=== PATIENT | female | born 1955 | race Caucasian/White ===

== ENCOUNTER 2020-01-31 10:15 | Observation (INO) | payer OTHER ==
[~2020-01-31] VITALS: Ht 162.6 cm; Wt 88.1 kg
[~2020-01-31 10:15] MED LIST: ALLEGRA 180MG180 MG PO; ASPIRIN E.C. 8181 MG PO; BRINTELLIX5 PO; CEPHALEXIN500 M1 PO; DOXYCYCLINE 10100 MG PO; EFFEXOR-XR150 MG PO; FLONASE NASAL S16 GM NS; HORIZANT600 MG PO; LEVOXYL0.137 MG PO; LEVOXYL0.15 MG PO; LIDODERM PATCH TP; LIPITOR 40MG TA40 MG PO; MAXALT5 MG PO; NEURONTIN600 MG/TAB PO; NEXIUM 40MG40 MG PO; NORCO 325 MG-7.1 TAB PO; NORVASC 10MG10 MG PO; OMEGA-3 FISH1000 MG PO; PIROXICAM20 MG PO; PLAVIX 75MG TAB75 MG PO; PLETAL 100MG T100 MG PO; PRINIVIL5 MG PO; PRINZIDE 12.5 M1 TA1 PO; SANCTURA20 MG PO; SEROQUEL XR400 M1 PO; SEROQUEL XR50 MG PO; SOMA 350MG350 MG/TAB PO; TENORMIN100 MG PO; ULTRAM 50MG TAB50 MG PO; UROCIT-K 1010 MEQ PO; VITAMIN D 1001000 IU PO; XOPENEX HF0.045 MG/A IH; ZOFRAN ODT8 MG PO
[2020-01-31] MEDS ORDERED: FLONASEALLERGY NS (16:12)
[2020-01-31] MEDS ORDERED: TIAZAC120 MG PO (16:13)
[2020-01-31] MEDS ORDERED: MAG-OX 400400 MG/TAB PO (16:14)
[2020-01-31] MEDS ORDERED: LEVOXYL0.15 MG PO (16:27)
[2020-01-31] MEDS ORDERED: SEROQUEL XR200 MG PO (16:35)
[2020-01-31] MEDS ORDERED: MIRALAX PA17 GM/Dose PO (16:36)
[2020-01-31] MEDS ORDERED: BRINTELLIX20 (16:37)
[2020-01-31] MEDS ORDERED: COLACE 100100 MG/CAP PO ×2 (16:39→16:40)
[2020-01-31] MEDS ORDERED: ABILIFY 10MG TA10 MG PO (16:39)
[2020-01-31] MEDS ORDERED: MYRBETR50MG PO (16:40)
[2020-01-31] MEDS ORDERED: LAMICTAL150 MG PO (16:40)
[2020-01-31] MEDS ORDERED: PROTONIX 40MG T40 MG PO (16:41)
[2020-01-31 17:27] VITALS: BP 125/47; PULSE 74; TEMP 97.4
[2020-01-31 17:27] LABS: HEMATOCRIT 27.5 % (37.0-47.0); HEMOGLOBIN 8.9 g/dl (12.5-16.0)
[2020-01-31 17:30] VITALS: BP 125/47; PULSE 74; TEMP 97.4
[2020-01-31 18:20] LABS: ALBUMIN 3.8 gm/dL (3.5-5.0); CALCIUM 8.8 mg/dL (8.4-10.2); CREATININE, serum 0.96 (0.52-1.25); POTASSIUM 4.2 mmol/L (3.4-5.0)
[2020-01-31 19:57] VITALS: BP 134/65; PULSE 83; TEMP 98.6
--- NOTE | 2020-01-31 20:05 | NUR ---
Pt up to room 352, approx 1600 via EMS from [place]. Pt A&O, indpendent in room, on room air, breathing is even and unlabored. pt placed on tele. pt denies SOB, N/V, chest pain. pt c/o some abdominal pain during EMS ride, doing ok at this time. pt c/o chronic back pain, this nurse called ALTAF Herman for pain medication, Zaira CARTER w/ retail shift manager to administer. Pt has RAC and LAC IVs that flush w/o difficulty. Pulses strong bilaterally. BS active. Pt c/o diarrhea, reason for admission. EGD/Colon scheduled for tomorrow 1020, consent signed and on chart, bowel prep to start tonight. All questions answered. LS cta, HRRR. No further needs expressed. NS at 125ml/hr started to RAC w/o issues. med rec, allergies, pharmacy reviewed and completed w/ patient.
--- NOTE | 2020-01-31 20:30 | NUR ---
Initial shift assessment done- states having back pain- it is chronic- would like her [place] at this time- Drinking the Miralax bowel prep,tolerating well --up to bathrrom with liquid clear stool with few brown flecks. Tele on. IV fluids of NS at 125cc/hr. VSS
[2020-01-31 22:57] LABS: HEMATOCRIT 28.2 % (37.0-47.0); HEMOGLOBIN 9.2 g/dl (12.5-16.0)
[2020-01-31 23:31] VITALS: BP 151/59; PULSE 79; TEMP 98.1
[2020-02-01] VITALS (11 sets, daily range): BP systolic 111–168; BP diastolic 42–72; PULSE 73–86; TEMP 98–99.5
--- NOTE | 2020-02-01 04:57 | NUR ---
Did sleep for an hour or two- will get second dose of Miralax at 0600 this morning-- stools liquid with just flecks of brown stool,,[place] given x2 for chronic back pain.
[2020-02-01 06:45] LABS: HEMATOCRIT 27.6 % (37.0-47.0); HEMOGLOBIN 8.7 g/dl (12.5-16.0); MEAN CELL VOLUME 98 fl (80.0-100.0); MEAN CORPUSCULAR HEMOGLOBIN 31 pg (27.0-31.0); MEAN CORPUSCULAR HGB CONC 32 g/dl (33.0-37.0); PLATELET COUNT 231 K/mm3 (130-400); RED BLOOD COUNT 2.81 M/mm3 (4.10-5.30); REDCELL DISTRIBUTION WIDTH-CV 13.5 % (11.5-14.5)
[2020-02-01 06:51] LABS: PROTHROMBIN TIME 10.7 SECONDS (9.7-12.8)
[2020-02-01 07:01] LABS: IRON,SERUM 30 ug/dL (35-150)
[2020-02-01 07:02] LABS: ALBUMIN 3.5 gm/dL (3.5-5.0); BILIRUBIN,TOTAL 0.2 mg/dL (0.0-1.0); CALCIUM 8.3 mg/dL (8.4-10.2); CREATININE, serum 0.78 (0.52-1.25); POTASSIUM 3.9 mmol/L (3.4-5.0); TOTAL PROTEIN 6.2 gm/dL (6.4-8.2)
[2020-02-01 07:04] LABS: BAND 5 % (0-10); EOSINOPHIL 4 % (0-4); LYMPHOCYTE 27 % (20.0-51.0); NEUTROPHILS 59 % (42.0-75.2); PLATELET ESTIMATE NORMAL (NORMAL)
[2020-02-01 07:10] LABS: TOTAL IRON BINDING CAPACITY 298 ug/dL (265-497)
--- NOTE | 2020-02-01 10:01 | NUR ---
Pt assessment completed and charted. Pt down for EGD/Colon at this time. Pt A&O, independent in room, on room air, breathing is even and unlabored. Pt denies SOB, N/V, abdominal pain, chest pain. Pt c/o bilateral knee pain, chronic. Receiving PRN [place] per mar. Pt has bilateral AC IVs, LAC INT, flushes well. RAC has IVF running w/o issue. No edema noted. Pulses strong bilaterally, BS active, HRRR, LS diminished throughout. Meds not given this morning until after procedure. No further needs at this time.
--- NOTE | 2020-02-01 10:18 | NUR ---
Initial visit; Patient receptive to Hide Puller offering prayer. Drea appears to be worried and is emotional. Hide Puller listented and offered comfort and empathy. Hide Puller will follow up.
--- NOTE | 2020-02-01 11:30 | NUR ---
Pt back frm EGD/Colon procedure, A&O, post vitals monitoring in progress. NO further needs at this time.
--- NOTE | 2020-02-01 13:53 | NUR ---
Pt post op vitals monitoring completed. Morning meds that were held this morning for procedure given at this time. Pt called complaining of back pain, requesting pain medication. [place] PRN given at this time. No further needs. CL diet resumed. Pt laying in bed.
--- NOTE | 2020-02-01 14:11 | NUR ---
SW met with the patient to discuss discharge plan. The patient lives in [place] with her , Kermit (ph#[phone]). She reports independence with ADLs and has a cane. The patient's PCP is Dr. Dedra Jaimes and she receives her medications on [place]. She reports no difficulties obtaining her meds. The patient's DPOA-HC is in EMR and it designates her daughter, Erendira Xavier (ph#[phone]), and son-in-law, Jonathan Xavier (ph#[phone]). The patient plans to return home with her upon discharge. SW contacted and reviewed the above information with the patient's , Kermit. He has no concerns with the patient returning back home with him upon discharge. No additional needs at this time.
[2020-02-01 17:32] LABS: HEMATOCRIT 30.4 % (37.0-47.0); HEMOGLOBIN 9.9 g/dl (12.5-16.0)
--- NOTE | 2020-02-01 18:47 | NUR ---
Another 5mls released from TR band, no issues noted.
--- NOTE | 2020-02-01 21:00 | NUR ---
Initial shift assessment done- states back pain 08/06,,will give [place] as ordered, VSS, states wants to get some sleep tonight since last night was bowel prep and didnt sleep. IV Fluids of NS at 75cc/hr. HGB stable. Tolerating clear liquids without nausea
[2020-02-02 03:33] VITALS: BP 113/53; PULSE 64; TEMP 98.3
--- NOTE | 2020-02-02 05:28 | NUR ---
No requests, slept well all night- VSS, SCD,s on all night
--- NOTE | 2020-02-02 06:40 | NUR ---
awake resting in bed, bedside shift report received from RAUL Meneses, Yesika, student nurse will be assisting with care and and was in room for report
[2020-02-02 07:09] LABS: MEAN CELL VOLUME 99 fl (80.0-100.0); MEAN CORPUSCULAR HGB CONC 33 g/dl (33.0-37.0); MEAN PLATELET VOLUME 11.7 fl (7.4-10.4); PLATELET COUNT 246 K/mm3 (130-400); RED BLOOD COUNT 2.96 M/mm3 (4.10-5.30); REDCELL DISTRIBUTION WIDTH-CV 13.9 % (11.5-14.5)
[2020-02-02 07:13] LABS: HEMATOCRIT 29.2 % (37.0-47.0); HEMOGLOBIN 9.5 g/dl (12.5-16.0); MEAN CORPUSCULAR HEMOGLOBIN 32 pg (27.0-31.0)
[2020-02-02 07:29] LABS: CALCIUM 8.3 mg/dL (8.4-10.2); CREATININE, serum 0.78 (0.52-1.25); POTASSIUM 3.7 mmol/L (3.4-5.0)
[2020-02-02 07:36] VITALS: BP 136/52; PULSE 73; TEMP 98.3
[2020-02-02 07:43] LABS: BAND 2 % (0-10); EOSINOPHIL 3 % (0-4); LYMPHOCYTE 26 % (20.0-51.0); METAMYELOCYTE 1 % (0-0); NEUTROPHILS 57 % (42.0-75.2); PLATELET ESTIMATE NORMAL (NORMAL); POIKILOCYTOSIS 1+
[2020-02-02] MEDS ORDERED: NATURAL IRON65 MG PO (08:27)
--- NOTE | 2020-02-02 08:30 | NUR ---
having clear liquids, spoke with provider and AHA diet has been ordered, full assessment completed, IV fluids stopped at this time, will plan discharge later
--- NOTE | 2020-02-02 09:41 | NUR ---
have reviewed assessment completed by student and in agreement with that assessment and other interventions
--- NOTE | 2020-02-02 09:55 | NUR ---
up and dressed for discharge, discharge instuctions given to pateint and verbalizes understanding
--- NOTE | 2020-02-02 10:50 | NUR ---
discharged per WC
--- NOTE | 2020-02-02 12:34 | NUR ---
Primary nurse was assisted with [phone] patient care by [employer] student Yesika Burch and [employer] instructor Alyssa Marcum RN-.
== END 2020-02-02 10:50 | disposition home or self-care (01) ==
LOC: MEDICAL 10:15
PROVIDERS: Internal Medicine Gastroenterology; Physician Assistant; ADMIT Internal Medicine
DX: K92.1 Melena (principal); D62 Acute posthemorrhagic anemia; I10 Essential (primary) hypertension; K29.30 Chronic superficial gastritis without bleeding; K63.5 Polyp of colon; D12.4 Benign neoplasm of descending colon; K64.0 First degree hemorrhoids; K62.89 Other specified diseases of anus and rectum; J44.9 Chronic obstructive pulmonary disease, unspecified; Z66 Do not resuscitate; K21.9 Gastro-esophageal reflux disease without esophagitis; N32.81 Overactive bladder; E66.9 Obesity, unspecified; G89.29 Other chronic pain; M54.5 Low back pain; M51.36 Other intervertebral disc degeneration, lumbar region; E03.9 Hypothyroidism, unspecified; E78.5 Hyperlipidemia, unspecified; I73.9 Peripheral vascular disease, unspecified; G25.81 Restless legs syndrome; F31.9 Bipolar disorder, unspecified; F41.9 Anxiety disorder, unspecified; F43.10 Post-traumatic stress disorder, unspecified; G43.909 Migraine, unspecified, not intractable, without status migrainosus; Z79.02 Long term (current) use of antithrombotics/antiplatelets; F17.210 Nicotine dependence, cigarettes, uncomplicated; Z23 Encounter for immunization; Z79.82 Long term (current) use of aspirin; Z79.890 Hormone replacement therapy; Z79.899 Other long term (current) drug therapy; Z88.2 Allergy status to sulfonamides; Z88.1 Allergy status to other antibiotic agents; Z88.8 Allergy status to other drugs, medicaments and biological substances
CPT/HCPCS: 99223-AI; 99232-AI; C9113; G0008; G0378; J2704; J7030

== ENCOUNTER 2020-06-22 10:08 | Day surgery (SDC) | payer MEDICARE, OTHER ==
[~2020-06-22] VITALS: Ht 162.6 cm; Wt 89.2 kg
[~2020-06-22 10:08] MED LIST changes: +ABILIFY 10MG TA10 MG PO; +BRINTELLIX20; +COLACE 100100 MG/CAP PO; +FLONASEALLERGY NS; +LAMICTAL150 MG PO; +MAG-OX 400400 MG/TAB PO; +MIRALAX PA17 GM/Dose PO; +MYRBETR50MG PO; +NATURAL IRON65 MG PO; +PROTONIX 40MG T40 MG PO; +SEROQUEL XR200 MG PO; +TIAZAC120 MG PO
[2020-06-22 11:13] VITALS: BP 159/75; PULSE 69; TEMP 97.5
[2020-06-22] MEDS ORDERED: SYNTHROID 0.10.15 MG PO (11:18)
[2020-06-22] MEDS ORDERED: TIAZAC120 MG PO (11:18)
[2020-06-22] MEDS ORDERED: UROCIT-K 1010 MEQ PO (11:18)
[2020-06-22] MEDS ORDERED: NORCO 325 MG-7.1 TAB PO (11:19)
[2020-06-22] MEDS ORDERED: BRINTELLIX10 PO (11:20)
[2020-06-22] MEDS ORDERED: SANCTURA20 MG PO (11:20)
[2020-06-22] MEDS ORDERED: BRINTELLIX20 PO (11:20)
[2020-06-22] MEDS ORDERED: ALLEGRA 180MG180 MG PO (11:21)
[2020-06-22] MEDS ORDERED: SOMA 350MG350 MG/TAB PO (11:21)
[2020-06-22] MEDS ORDERED: ABILIFY 15MG TA15 MG PO (11:21)
[2020-06-22] MEDS ORDERED: COLACE 100100 MG/CAP PO (11:22)
[2020-06-22] MEDS ORDERED: NEURONTIN600 MG/TAB PO (11:22)
[2020-06-22] MEDS ORDERED: PROTONIX 40MG T40 MG PO (11:22)
[2020-06-22] MEDS ORDERED: VITAMIN D31000 I1 PO (11:23)
[2020-06-22 14:11] VITALS: BP 156/88; PULSE 73; TEMP 97.3
--- NOTE | 2020-06-22 14:11 | NUR ---
PATIENT TO RECOVERY BAY 3 POST PROCEDURE VIA CART ACCOMPANIED BY Saji AVLERA RN. PT TO CHAIR AMBULATORY WITH 1 PERSON ASSIST. MADE COMFORTABLE IN CHAIR, GIVEN WARM BLANKETS. COMPLAINS OF ABDOMINAL CRAMPING. VITAL SIGNS DONE AND REPORT FROM Saji VALERA RN. GIVEN SODA AND DANNI CRACKERS.
[2020-06-22 14:15] VITALS: BP 170/86; PULSE 73
--- NOTE | 2020-06-22 14:23 | NUR ---
AT BEDSIDE TO TALK WITH PATIENT.
[2020-06-22 14:30] VITALS: BP 172/79; PULSE 73
--- NOTE | 2020-06-22 14:42 | NUR ---
IV SITE TO RIGHT HAND DISCONTINUED. NO REDNESS OR SWELLING. PRESSURE APPLIED AND SECURED WITH COTTON AND COBAN
[2020-06-22 14:45] VITALS: BP 186/84; PULSE 75
--- NOTE | 2020-06-22 15:00 | NUR ---
DISMISSAL INSTRUCTIONS REVIEWED WITH PATIENT AND VERBALLY EXPLAINED. WRITTEN COPIES SENT WITH PATIENT. PATIENT GIVEN VERBAL UNDERSTANDING AND DENIES QUESITIONS AND SIGNS IN ACKNOWLEDGMENT OF RECEIPT OF INSTRUCTIONS.
--- NOTE | 2020-06-22 15:08 | NUR ---
PATIENT ESCORTED TO WAITING LIQUEFIED PETROLEUM GASFITTER VIA WHEELCHAIR BY MEMO CARTER. ASSISTED TO VEHICLE
== END 2020-06-22 15:08 | disposition home or self-care (01) ==
LOC: SDCO 10:08
DX: Z12.11 Encounter for screening for malignant neoplasm of colon (principal); K63.5 Polyp of colon; D12.3 Benign neoplasm of transverse colon; K62.1 Rectal polyp; K29.30 Chronic superficial gastritis without bleeding; G89.29 Other chronic pain; M54.5 Low back pain; R07.9 Chest pain, unspecified; J44.9 Chronic obstructive pulmonary disease, unspecified; K21.9 Gastro-esophageal reflux disease without esophagitis; I73.9 Peripheral vascular disease, unspecified; I10 Essential (primary) hypertension; E78.5 Hyperlipidemia, unspecified; E03.9 Hypothyroidism, unspecified; G43.909 Migraine, unspecified, not intractable, without status migrainosus; F32.9 Major depressive disorder, single episode, unspecified; F17.210 Nicotine dependence, cigarettes, uncomplicated; Z20.822 Contact with and (suspected) exposure to COVID-19; Z86.010 Personal history of colon polyps; Z88.1 Allergy status to other antibiotic agents; Z88.2 Allergy status to sulfonamides; Z88.8 Allergy status to other drugs, medicaments and biological substances
CPT/HCPCS: J2704; J7120

== ENCOUNTER → 2021-01-02 | Outpatient (CLI) | payer MEDICARE, OTHER ==
[~2021-01-02] MED LIST changes: +ABILIFY 15MG TA15 MG PO; +BRINTELLIX10 PO; +BRINTELLIX20 PO; +MIRALAX119G PO; +SYNTHROID 0.10.15 MG PO; +SYNTHROID0.137 MG PO; +VITAMIN D31000 I1 PO
== END ==
LOC: COL.RAD 12:25
DX: I73.9 Peripheral vascular disease, unspecified (principal); I10 Essential (primary) hypertension; I70.8 Atherosclerosis of other arteries; Z90.710 Acquired absence of both cervix and uterus
CPT/HCPCS: Q9967

== ENCOUNTER 2021-02-19 06:56 | Day surgery (SDC) | payer MEDICARE, OTHER ==
[~2021-02-19] VITALS: Ht 161.3 cm; Wt 86.7 kg
[2021-02-19] VITALS (8 sets, daily range): BP systolic 139–159; BP diastolic 45–93; PULSE 66–89; TEMP 97.1–99.4
[~2021-02-19 06:56] MED LIST changes: -MIRALAX119G PO; -SYNTHROID0.137 MG PO
[2021-02-19] MEDS ORDERED: MIRALAX119G PO (07:38)
[2021-02-19] MEDS ORDERED: SYNTHROID0.137 MG PO (07:41)
[2021-02-19] MEDS ORDERED: MYRBETR50MG PO (07:43)
[2021-02-19] MEDS ORDERED: NORCO 325 MG-7.1 TAB PO (10:36)
--- NOTE | 2021-02-19 11:30 | NUR ---
The patient arrived back to [place] [facility] from the recovery room at this time. The patient appears alert and oriented and reports minimal pain and nausea at this time. Post operative vital signs were started at this time. The patient has some ice water and appears to be tolerating it well. The patient has three bandainds to her abdomen that appear clean, dry and intact. Call light is within reach. Will continue to monitor the patient.
--- NOTE | 2021-02-19 11:45 | NUR ---
The patient appears to be tolerating the water well and requests to try some saltine crackers. Vital signs appear stable. Call light is within reach. Will continue to monitor the patient.
--- NOTE | 2021-02-19 12:00 | NUR ---
The patient is eating her crackers and tolerating them well. The patient requests to try some sprite at this time. The patient's was notified that she had returned from surgery but is going to wait in the car for her to be ready for discharge.
--- NOTE | 2021-02-19 12:15 | NUR ---
The patient requests to lay down and rest. The head of her bed was lowered and her pillow was adjusted at this time. The patient denies any further needs at this time. Call light remains within reach. Will continue to monitor the patient.
--- NOTE | 2021-02-19 12:45 | NUR ---
The patient appears to be resting quietly with her eyes closed at this time. Respirations appear even and unlabored. Call light is within reach. Vital signs apper stable. Will continue to monitor the patient.
--- NOTE | 2021-02-19 13:20 | NUR ---
The patient appears awake and requests to ambulate to the bathroom and then be discharged home. The patient ambulated to the bathroom with the stand by assistance of one nurse and appeared to tolerate the activity well. The patient voided without difficulty. The nurse instructed the patient to get dressed and notify the staff when she is ready to review her discharge paperwork.
--- NOTE | 2021-02-19 13:35 | NUR ---
Discharge instructions were reviewed with the patient at this time. She verbalized understanding and has no questions for the nurse at this time. The patient's IV to her right hand was removed and a pressure dressing was applied to the site. The patient is dressed and ready to be escorted out.
--- NOTE | 2021-02-19 13:45 | NUR ---
The patient was escorted out via wheelchair to a private vehicle by RAUL Suarez. The patient's belongings and discharge paperwork were sent with her. The pateint's is present to drive her home.
== END 2021-02-19 13:45 | disposition home or self-care (01) ==
LOC: SDCO 06:56
DX: K80.10 Calculus of gallbladder with chronic cholecystitis without obstruction (principal); K21.9 Gastro-esophageal reflux disease without esophagitis; I73.9 Peripheral vascular disease, unspecified; I11.0 Hypertensive heart disease with heart failure; I50.9 Heart failure, unspecified; E78.5 Hyperlipidemia, unspecified; E03.9 Hypothyroidism, unspecified; J44.9 Chronic obstructive pulmonary disease, unspecified; G89.29 Other chronic pain; M19.90 Unspecified osteoarthritis, unspecified site; M54.9 Dorsalgia, unspecified; G43.909 Migraine, unspecified, not intractable, without status migrainosus; D64.9 Anemia, unspecified; F11.90 Opioid use, unspecified, uncomplicated; F17.210 Nicotine dependence, cigarettes, uncomplicated; F41.9 Anxiety disorder, unspecified; F43.10 Post-traumatic stress disorder, unspecified; F32.A Depression, unspecified; Z79.890 Hormone replacement therapy; Z79.899 Other long term (current) drug therapy; Z79.82 Long term (current) use of aspirin
CPT/HCPCS: J1170; J2550; J3010; J7120